=== PATIENT | male | born 1955 | race Caucasian/White ===

== ENCOUNTER 2016-07-24 08:53 | Emergency (ER) | payer MEDICARE ==
[~2016-07-24] VITALS: Ht 193 cm; Wt 145.1 kg
--- NOTE | ~2016-07-24 | EKG ---
[place], [place] ELECTROCARDIOGRAM REPORT NAME: AMA HENDERSON UNIT #: [id number] ROOM: DOCTOR: AVINASH CURTIS MD BIRTHDATE: [birth year] DOS: 07/24/2016 STUDY DONE: 07/24/2016. TIME: 10:01 a.m. Normal sinus rhythm at rate 78, normal electrocardiogram. AVINASH CURTIS MD CM:EKGRPT:ELECTROCARDIOGRAM REPORT [id number] AVINASH CURTIS MD
[~2016-07-24 08:53] MED LIST: ASPRIN/BUTALBIT1 TAB PO; BACTRIM DS 8001 TA1 PO; COREG12.5 MG PO; FLOMAX0.4 MG PO; MEDROL DOSEPAK4 MG PO; PLAVIX75 MG PO; SIMVASTATIN80 MG PO; VICODIN 5/500 505 MG PO; ZESTRIL10 MG PO
[2016-07-24 09:30] LABS: BASO # 0.1 10*3/uL (0.0-0.1); BASO % 0.5 % (0.0-1.0); EOS # 0.2 10*3/uL (0.0-0.4); EOS % 1.6 % (1.0-4.0); HEMATOCRIT 49.5 % (42.0-52.0); HEMOGLOBIN 16.4 g/dl (14.0-18.0); LYMPH % 21.3 % (27.0-41.0); MEAN CELL VOLUME 91.7 fl (80.0-94.0); MEAN CORPUSCULAR HGB 30.4 pg (27.0-31.0); MEAN CORPUSCULAR HGB CONC 33.1 g/dl (33.0-37.0); MEAN PLATELET VOLUME 10.2 fl (9.6-12.3); MONO # 0.6 10*3/uL (0.1-1.0); MONO % 6.5 % (3.0-9.0); NEUT # 6.4 10*3/uL (2.3-7.9); NEUT % 69.7 % (47.0-73.0); PLATELET COUNT AUTOMATED 263 10*3/uL (130-400); RED CELL DISTRI WIDTH 13.2 % (0-14.5); WHITE BLOOD COUNT 9.2 10*3/uL (4.8-10.8)
[2016-07-24 09:34] LABS: BILIRUBIN NEGATIVE (NEGATIVE); BLOOD NEGATIVE (NEGATIVE); CLARITY SL CLOUDY (CLEAR); COLOR YELLOW (YELLOW); GLUCOSE NEGATIVE (NEGATIVE); KETONE NEGATIVE (NEGATIVE); LEUKO ESTERASE NEGATIVE (NEGATIVE); NITRITE NEGATIVE (NEGATIVE); PROTEIN NEGATIVE (NEGATIVE); SPECIFIC GRAVITY 1.015 (1.005-1.030); UROBILINOGEN 0.2 E.U./dl (0.2-1.0)
[2016-07-24 09:43] LABS: BACTERIA TRACE; MUCOUS 1+; URINE REFLEX COMMENT NO (NO)
[2016-07-24 09:44] LABS: ALBUMIN 4.1 gm/dl (3.1-4.5); ALKALINE PHOSPHATASE 68 U/L (45-117); BILIRUBIN, TOTAL 0.7 mg/dl (0.2-1.0); BUN 11 mg/dl (7-24); CARBON DIOXIDE 27 mmol/L (21-32); CHLORIDE 104 mmol/L (98-107); EST GLOM FILT AFRICAN AMERICAN > 60 ml/min; GLUCOSE 112 mg/dL (65-99); POTASSIUM 4.3 mmol/L (3.5-5.1); SGOT/AST 19 IU/L (3-35); SGPT/ALT 31 U/L (12-78); SODIUM 139 mmol/L (136-145); TOTAL PROTEIN 7.8 gm/dL (6.4-8.2)
[2016-07-24] MEDS ORDERED: SUNMARK OMEPRAZ20 M1 PO (10:25)
[2016-07-24] MEDS ORDERED: CARAFATE1 G1 PO (10:25)
== END 2016-07-24 11:39 | disposition home or self-care (01) ==
LOC: ED 08:53
PROVIDERS: Nurse Practitioner Family
DX: K21.9 Gastro-esophageal reflux disease without esophagitis (principal); R03.0 Elevated blood-pressure reading, without diagnosis of hypertension; R13.10 Dysphagia, unspecified; R35.0 Frequency of micturition; Z79.899 Other long term (current) drug therapy

== ENCOUNTER → 2016-08-07 | Outpatient (CLI) | payer MEDICARE ==
[~2016-08-07] MED LIST changes: +CARAFATE1 G1 PO; +LOPRESSOR50 M1 PO; +SUNMARK OMEPRAZ20 M1 PO
== END | disposition home or self-care (01) ==
LOC: CARD 02:43
DX: I25.118 Atherosclerotic heart disease of native coronary artery with other forms of angina pectoris (principal); I10 Essential (primary) hypertension; R06.02 Shortness of breath

== ENCOUNTER 2023-08-04 14:38 | Inpatient (IN) | payer OTHER ==
[~2023-08-04] VITALS: Ht 190.5 cm; Wt 167.5 kg
[2023-08-04 14:38] VITALS: BP 142/64
[2023-08-04 15:08] LABS: BASO # 0.1 10*3/uL (0.0-0.1); BASO % 0.6 % (0.0-1.0); EOS # 0.2 10*3/uL (0.0-0.4); EOS % 1.7 % (1.0-4.0); HEMATOCRIT 45.5 % (42.0-52.0); LYMPH # 3.1 10*3/uL (1.3-4.4); LYMPH % 30.8 % (27.0-41.0); MEAN CELL VOLUME 93.4 fl (80.0-94.0); MEAN CORPUSCULAR HGB 30.6 pg (27.0-31.0); MEAN CORPUSCULAR HGB CONC 32.7 g/dl (33.0-37.0); MEAN PLATELET VOLUME 10.9 fl (9.6-12.3); MONO # 0.7 10*3/uL (0.1-1.0); MONO % 7.3 % (3.0-9.0); NEUT # 5.9 10*3/uL (2.3-7.9); NEUT % 59.2 % (47.0-73.0); PLATELET COUNT AUTOMATED 189 10*3/uL (130-400); RED BLOOD COUNT 4.87 10*6/uL (4.50-5.90); RED CELL DISTRI WIDTH 13.2 % (0-14.5); WHITE BLOOD COUNT 9.9 10*3/uL (4.8-10.8)
[2023-08-04 15:22] LABS: ACT PARTIAL THROMBO TIME 26.8 SECONDS (20.0-32.1)
[2023-08-04 15:39] LABS: ALKALINE PHOSPHATASE 70 U/L (46-116); BUN 13 mg/dl (9-23); CHLORIDE 103 mmol/L (98-107); POTASSIUM 3.6 mmol/L (3.4-5.1); SGPT/ALT 26 U/L (5-49); TOTAL PROTEIN 6.8 gm/dL (6.0-8.0)
[2023-08-04] MEDS ORDERED: HYDROCHLOROTH12.5 M2 PO (15:42)
[2023-08-04] MEDS ORDERED: HEPARIN SODIUM 250 ML IV SCH (16:00)
[2023-08-04] MEDS ORDERED: IOHEXOL 350 MG/ML 100 ML VIAL IV ONE (16:05)
[2023-08-04] MEDS ORDERED: SODIUM CHLORIDE 0.9% 100 ML BAG IV ONE (16:20)
[2023-08-04 19:43] VITALS: BP 152/77
[2023-08-04] MEDS ORDERED: MORPHINE Sulfate 2 MG/ML SYR IV PRN (20:25)
[2023-08-04] MEDS ORDERED: Magnesium Hydroxide 30 ML UDC PO PRN (20:25)
[2023-08-04] MEDS ORDERED: ACETAMINOPHEN 325 MG TAB PO PRN (20:25)
[2023-08-04] MEDS ORDERED: BISACODYL 5 MG TAB PO PRN (20:25)
[2023-08-04] MEDS ORDERED: ACETAMINOPHEN 650 MG SUPP R PRN (20:25)
[2023-08-04] MEDS ORDERED: ASPIRIN 325 MG TAB PO ONE (21:40)
[2023-08-04 22:00] VITALS: BP 147/85
[2023-08-04 23:56] VITALS: BP 131/79
[2023-08-04] MEDS ORDERED: METOPROLOL SUCC50 M1 PO (23:57)
[2023-08-05] VITALS: BP 120/75
[2023-08-05 03:08] LABS: BASO % 0.4 % (0.0-1.0); EOS # 0.2 10*3/uL (0.0-0.4); EOS % 1.6 % (1.0-4.0); HEMATOCRIT 44.7 % (42.0-52.0); LYMPH # 2.9 10*3/uL (1.3-4.4); LYMPH % 29.3 % (27.0-41.0); MEAN CELL VOLUME 94.3 fl (80.0-94.0); MEAN CORPUSCULAR HGB 30.8 pg (27.0-31.0); MEAN CORPUSCULAR HGB CONC 32.7 g/dl (33.0-37.0); MEAN PLATELET VOLUME 10.9 fl (9.6-12.3); MONO # 0.7 10*3/uL (0.1-1.0); MONO % 7.4 % (3.0-9.0); NEUT # 5.9 10*3/uL (2.3-7.9); NEUT % 60.9 % (47.0-73.0); PLATELET COUNT AUTOMATED 161 10*3/uL (130-400); RED BLOOD COUNT 4.74 10*6/uL (4.50-5.90); RED CELL DISTRI WIDTH 13.4 % (0-14.5); WHITE BLOOD COUNT 9.7 10*3/uL (4.8-10.8)
[2023-08-05 03:34] LABS: BUN 11 mg/dl (9-23); CHLORIDE 104 mmol/L (98-107); CHOLESTEROL 131 mg/dL (<200); FREE T4 0.94 ng/dl (0.89-1.76); LDL CHOLESTEROL 61 mg/dL (9-159); POTASSIUM 3.6 mmol/L (3.4-5.1); TRIGLYCERIDES 137 mg/dl (<150)
[2023-08-05 04:00] VITALS: BP 117/73
[2023-08-05 08:00] VITALS: BP 120/69
[2023-08-05] MEDS ORDERED: PERFLUTREN PROTEIN-A MICROSPHR 3 ML VIAL IV ONE (09:08)
[2023-08-05] MEDS ORDERED: HYDROCHLOROTHIAZIDE 12.5 MG CAP PO SCH (10:00)
[2023-08-05] MEDS ORDERED: LISINOPRIL 20 MG TAB PO SCH (10:00)
[2023-08-05] MEDS ORDERED: ASPIRIN 325 MG TAB PO SCH (10:00)
[2023-08-05] MEDS ORDERED: METOPROLOL SUCCINATE XR 50 MG TAB PO SCH (10:00)
[2023-08-05] MEDS ORDERED: ASPIRIN, CHEWABLE 81 MG TAB PO SCH (10:25)
[2023-08-05 12:00] VITALS: BP 107/67
[2023-08-05 16:00] VITALS: BP 141/77
[2023-08-05] MEDS ORDERED: Acetaminophen/Hydrocodone 5 MG/325 MG TABLET PO PRN (17:05)
[2023-08-05] MEDS ORDERED: FUROSEMIDE 40 MG/4 ML VIAL IV SCH (18:00)
[2023-08-05 20:00] VITALS: BP 115/72
[2023-08-05] MEDS ORDERED: SIMVASTATIN 80 MG TABLET PO SCH (22:00)
[2023-08-06] VITALS: BP 127/69
[2023-08-06 04:00] LABS: BASO # 0.1 10*3/uL (0.0-0.1); BASO % 0.5 % (0.0-1.0); EOS # 0.3 10*3/uL (0.0-0.4); EOS % 2.6 % (1.0-4.0); HEMATOCRIT 42.9 % (42.0-52.0); LYMPH # 2.8 10*3/uL (1.3-4.4); LYMPH % 27.4 % (27.0-41.0); MEAN CELL VOLUME 94.1 fl (80.0-94.0); MEAN CORPUSCULAR HGB 30.3 pg (27.0-31.0); MEAN CORPUSCULAR HGB CONC 32.2 g/dl (33.0-37.0); MEAN PLATELET VOLUME 10.5 fl (9.6-12.3); MONO # 0.8 10*3/uL (0.1-1.0); MONO % 7.5 % (3.0-9.0); NEUT # 6.2 10*3/uL (2.3-7.9); NEUT % 61.4 % (47.0-73.0); PLATELET COUNT AUTOMATED 170 10*3/uL (130-400); RED BLOOD COUNT 4.56 10*6/uL (4.50-5.90); RED CELL DISTRI WIDTH 13.4 % (0-14.5); WHITE BLOOD COUNT 10.1 10*3/uL (4.8-10.8)
[2023-08-06 08:00] VITALS: BP 105/66
[2023-08-06] MEDS ORDERED: Ketorolac Tromethamine 30 MG/ML VIAL IV ONE (10:00)
[2023-08-06] MEDS ORDERED: Acetaminophen/Oxycodone 5 MG/325 MG TABLET PO PRN ×2 (10:05→20:02)
[2023-08-06] MEDS ORDERED: APIXABAN 5 MG TAB PO SCH (10:25)
[2023-08-06 12:00] VITALS: BP 133/77
[2023-08-06 16:00] VITALS: BP 129/62
[2023-08-06] MEDS ORDERED: FUROSEMIDE 20 MG/2 ML VIAL IV SCH (18:00)
[2023-08-06 20:00] VITALS: BP 119/72
[2023-08-06] MEDS ORDERED: CALCIUM (TUMS) 500MG PO PRN (20:25)
[2023-08-07] VITALS: BP 152/94
[2023-08-07 08:00] VITALS: BP 128/72
[2023-08-07] MEDS ORDERED: ELIQUIS5 M2 PO (11:49)
[2023-08-07] MEDS ORDERED: ASPIRIN CHILDRE81 MG PO (11:49)
[2023-08-07] MEDS ORDERED: FUROSEMIDE20 M1 PO (11:49)
[2023-08-07] MEDS ORDERED: OXYCODONE-ACET1 EAC3 PO (11:49)
[2023-08-07 12:00] VITALS: BP 122/70
[2023-08-07] MEDS ORDERED: FUROSEMIDE 20 MG TAB PO SCH (13:10)
== END 2023-08-07 13:37 | disposition home or self-care (01) | DRG 280 ==
LOC: ED 14:38 → EDHOLD 19:00 → ICCU 19:00
PROVIDERS: Internal Medicine; Student in an Organized Health Care Education/Training Program; ADMIT Internal Medicine; ATTEND Internal Medicine
DX: I82.451 Acute embolism and thrombosis of right peroneal vein (principal); I21.4 Non-ST elevation (NSTEMI) myocardial infarction; I26.99 Other pulmonary embolism without acute cor pulmonale; J96.01 Acute respiratory failure with hypoxia; Z68.42 Body mass index [BMI] 45.0-49.9, adult; I82.441 Acute embolism and thrombosis of right tibial vein; I48.91 Unspecified atrial fibrillation; I10 Essential (primary) hypertension; E78.5 Hyperlipidemia, unspecified; K21.9 Gastro-esophageal reflux disease without esophagitis; E66.01 Morbid (severe) obesity due to excess calories; I25.10 Atherosclerotic heart disease of native coronary artery without angina pectoris; I25.5 Ischemic cardiomyopathy; E11.65 Type 2 diabetes mellitus with hyperglycemia; D64.9 Anemia, unspecified; Z95.5 Presence of coronary angioplasty implant and graft; Z82.49 Family history of ischemic heart disease and other diseases of the circulatory system; Z83.3 Family history of diabetes mellitus; I25.2 Old myocardial infarction; Z79.82 Long term (current) use of aspirin; Z79.899 Other long term (current) drug therapy

== ENCOUNTER → 2023-08-19 | Outpatient (CLI) | payer OTHER ==
[~2023-08-19] MED LIST changes: +ASPIRIN CHILDRE81 MG PO; +ELIQUIS5 M2 PO; +FUROSEMIDE20 M1 PO; +HYDROCHLOROTH12.5 M2 PO; +METOPROLOL SUCC50 M1 PO; +OXYCODONE-ACET1 EAC3 PO
[2023-08-19 13:01] LABS: BUN 10 mg/dl (9-23); CHLORIDE 101 mmol/L (98-107); POTASSIUM 4.1 mmol/L (3.4-5.1)
== END | disposition home or self-care (01) ==
LOC: LAB 12:24
PROVIDERS: ATTEND Internal Medicine
DX: E11.9 Type 2 diabetes mellitus without complications (principal); D68.59 Other primary thrombophilia

== ENCOUNTER → 2023-12-27 | Outpatient (CLI) | payer OTHER ==
[2023-12-27 12:47] LABS: BASO # 0.1 10*3/uL (0.0-0.1); BASO % 0.5 % (0.0-1.0); EOS # 0.1 10*3/uL (0.0-0.4); EOS % 0.8 % (1.0-4.0); HEMATOCRIT 45.9 % (42.0-52.0); LYMPH # 2.2 10*3/uL (1.3-4.4); LYMPH % 22.8 % (27.0-41.0); MEAN CELL VOLUME 95.4 fl (80.0-94.0); MEAN CORPUSCULAR HGB 31.4 pg (27.0-31.0); MEAN CORPUSCULAR HGB CONC 32.9 g/dl (33.0-37.0); MEAN PLATELET VOLUME 11.3 fl (9.6-12.3); MONO # 0.6 10*3/uL (0.1-1.0); MONO % 6.7 % (3.0-9.0); NEUT # 6.5 10*3/uL (2.3-7.9); NEUT % 68.7 % (47.0-73.0); PLATELET COUNT AUTOMATED 247 10*3/uL (130-400); RED BLOOD COUNT 4.81 10*6/uL (4.50-5.90); RED CELL DISTRI WIDTH 13.4 % (0-14.5); WHITE BLOOD COUNT 9.4 10*3/uL (4.8-10.8)
[2023-12-27 13:10] LABS: ALKALINE PHOSPHATASE 62 U/L (46-116); BUN 8 mg/dl (9-23); CHLORIDE 100 mmol/L (98-107); CHOLESTEROL 117 mg/dL (<200); LDL CHOLESTEROL 55 mg/dL (9-159); POTASSIUM 4.2 mmol/L (3.4-5.1); SGPT/ALT 23 U/L (5-49); TOTAL PROTEIN 7.6 gm/dL (6.0-8.0); TRIGLYCERIDES 80 mg/dl (<150)
== END | disposition home or self-care (01) ==
LOC: LAB 12:22
PROVIDERS: ATTEND Internal Medicine
DX: I10 Essential (primary) hypertension (principal); E11.9 Type 2 diabetes mellitus without complications; E78.5 Hyperlipidemia, unspecified

== ENCOUNTER → 2024-06-01 | Outpatient (CLI) | payer MEDICARE | END | disposition home or self-care (01) | LOC: RESCLI 10:38 | PROVIDERS: ATTEND Internal Medicine | DX: M54.9 Dorsalgia, unspecified (principal); D68.59 Other primary thrombophilia; M62.838 Other muscle spasm; I10 Essential (primary) hypertension; F32.9 Major depressive disorder, single episode, unspecified; R11.0 Nausea; E11.9 Type 2 diabetes mellitus without complications; Z79.899 Other long term (current) drug therapy; Z98.890 Other specified postprocedural states ==